=== PATIENT | male | born 1980 | race Caucasian/White ===

== ENCOUNTER 2022-01-07 09:05 | Outpatient (CLI) | payer OTHER, SELFPAY ==
[2022-01-07 09:55] LABS: Uric Acid 7.3 mg/dL (3.5-8.5)
== END 2022-01-07 09:06 | disposition home or self-care (01) ==
LOC: ANHLAB 09:08
PROVIDERS: PCP Internal Medicine; Visit Provider Internal Medicine
DX: M10.9 Gout, unspecified (principal)
CPT/HCPCS: 36415; 84550

== ENCOUNTER 2023-03-02 08:25 | Outpatient (CLI) | payer OTHER, SELFPAY ==
[2023-03-02 19:56] LABS: Basophils Absolute Auto 0.1 K/mm3 (0.0-0.1); Basophils Percent Auto 0.8 % (0.2-1.2); Eosinophils Absolute Auto 0.1 K/mm3 (0-0.3); Eosinophils Percent Auto 1.5 % (0-4.4); Hematocrit 47.1 % (42.0-52.0); Immature Granulocyte Absolute 0.01 K/mm3 (0.00-0.031); Immature Granulocyte Percent A 0.2 % (0-0.5); Lymphocytes Percent Auto 35.5 % (18.3-44.2); Mean Corpuscular Hemoglobin 31.5 pg (26-34); Mean Corpuscular Volume 92.7 fl (80-100); Mean Platelet Volume 9.8 fl (7.4-10.4); Monocytes Absolute Auto 0.5 K/mm3 (0.1-0.6); Neutrophils Absolute Auto 3.5 K/mm3 (1.3-6.7); Platelet Count Result 299 k/mm3 (150-375); Red Blood Count 5.08 M/mm3 (4.6-6.20); White Blood Count 6.5 K/mm3 (4.5-10.0)
[2023-03-02 21:32] LABS: Alanine Aminotransferase 61 U/L (6-50); Albumin Level 4.8 g/dL (3.5-5.1); Alkaline Phosphatase 84 U/L (38-126); Anion Gap 7 mmol/L (8-16); Aspartate Amino Transferase 65 U/L (17-59); Bilirubin,Total 0.7 mg/dL (0.2-1.3); Blood Urea Nitrogen 19 mg/dL (9-20); Calcium 9.7 mg/dL (8.4-10.2); Carbon Dioxide 32 mmol/L (22-30); Chloride 101 mmol/L (98-107); Cholesterol 203 mg/dL (0-200); Estimated Glomerular Filt Rate > 60; Glucose 85 mg/dL (65-110); HDL Direct 41 mg/dL; Potassium 4.8 mmol/L (3.4-5.0); Sodium 140 mmol/L (137-145); Triglycerides 122 mg/dL (<150); Uric Acid 8.7 mg/dL (3.5-8.5)
[2023-03-02 21:43] LABS: LDL Cholesterol Direct 124 mg/dL
[2023-03-10 04:49] LABS: Testosterone Free 60.5 pg/mL (35.0-155.0); Testosterone Total 275 ng/dL (250-1100)
[2023-03-12 23:56] LABS: Estradiol, Ultrasensitive 26 pg/mL (< OR = 29)
== END 2023-03-02 08:26 | disposition home or self-care (01) ==
LOC: ANHGOSHLAB 08:28
PROVIDERS: PCP Internal Medicine; Visit Provider Nurse Practitioner
DX: G47.19 Other hypersomnia (principal); I10 Essential (primary) hypertension; M10.9 Gout, unspecified
CPT/HCPCS: 36415; 80053; 80061; 82670; 84402; 84403; 84443; 84550; 85025

== ENCOUNTER 2023-03-31 09:32 | Outpatient (CLI) | payer OTHER, SELFPAY ==
[2023-04-05 19:20] LABS: Testosterone Free 68.4 pg/mL (35.0-155.0); Testosterone Total 329 ng/dL (250-1100)
== END 2023-03-31 09:33 | disposition home or self-care (01) ==
LOC: ANHGOSHLAB 09:32
PROVIDERS: PCP Internal Medicine; Visit Provider Nurse Practitioner
DX: G47.19 Other hypersomnia (principal)
CPT/HCPCS: 36415; 84402; 84403

== ENCOUNTER 2023-05-24 08:15 | Outpatient (CLI) | payer OTHER, SELFPAY ==
--- NOTE | 2023-06-21 17:32 | WPDSLEEPSTUD ---
Sleep Study Date of Study: 05/24/23 Ordering Provider: Inessa Jameson NP Interpreting Physician: Chio Martinez DO Sleep Study Type: Split Polysomnogram Height: 1.78 m Weight: 102.058 kg Body Mass Index: 32.3 Neck Circumference (inches): 17 [place]: 11 Reason for Sleep Study Previously diagnosed CHARLES by home sleep test. Has been using Mandibular Advancement Device. Persistent daytime hypersomnia, nocturnal gasping Sleep History The patient is a 42-year-old male with hypertension, gout and previously diagnosed sleep apnea that had a sleep study ordered by his primary care for re-evaluation of his sleep apnea. The patient had a home sleep test ordered by his dentist and tested positive for sleep apnea which was then treated using a mandibular advancement device. The patient has persistent snoring, nocturnal gasping and daytime hypersomnia. The patient frequently awakens from sleep short of breath. He occasionally awakens at night with heartburn, belching or cough. He constantly snores loudly enough others complain. He occasionally has trouble sleeping when he has a cold. He frequently wakes up gasping for air throughout the night. He constantly has breathing problems at night observed by himself or others. He occasionally sweats excessively at night. He occasionally has heart palpitations or irregular heartbeats during the night. He rarely falls asleep during the day but never falls asleep while driving. He denies cataplexy. He occasionally has trouble at school or work due to sleepiness. He rarely feels unable to move while waking up or falling asleep. He rarely experiences vivid dreamlike scenes upon awakening or falling asleep. He denies feeling afraid of going to sleep. He rarely has nightmares. He occasionally remembers his dreams. He rarely has thoughts racing through his mind. He rarely feels sad or depressed. He rarely has anxiety. He occasionally has muscular tension. He occasionally notices parts of his body jerk. He occasionally kicks during the night. He rarely has crawling and aching feelings in his legs and rarely has leg pain during the night. He frequently grinds his teeth during sleep and frequently awakens with morning jaw pain. He is occasionally bothered by pain during the day but rarely awakened by pain during the night. He occasionally wakes up feeling stiff in the morning. He occasionally wakes up with sore achy muscles. He occasionally wakes up with pain in the neck, spine and other joints. He goes to bed at 10:00 p.m. on both weekdays and weekends. It takes him 30-60 minutes to fall asleep. He wakes up 2-3 times throughout the night to urinate and is able to fall back asleep within 15 minutes. He wakes up at 6:00 a.m. on both weekdays and weekends. He typically gets 5-6 hours of sleep per night. He does not stay in bed very long after waking up in the morning. He currently lives with his and 3 children. He denies consuming any caffeinated beverages within 2 hours of bedtime. He denies engaging in physical exercise before bedtime. He will watch television before falling asleep. He denies taking naps in the afternoon or the evening. He consumes 4 caffeinated beverages per day. He consumes 3 alcoholic beverages per day. He denies tobacco and recreational drug use. [facility] Family History Family History Father Acute myocardial infarction Mother Polycystic kidney disease Social History Social History Smoking status: Never smoker Alcohol intake: current Drinks per week: 5 Substance use: never Lack of Transportation: No Lack of Food: Never True Current Housing: I Have Housing Concerned About Future Housing: No Difficulty Paying Gas/Electric Bills: No Difficulty Paying for Meds: No Currently Unemployed: No Education: Bachelor's Degree Difficulty w/
[2023-06-21 17:39] VITALS: BMI 32.3
== END 2023-05-25 06:46 | disposition home or self-care (01) ==
LOC: ANHCSM 08:16
PROVIDERS: PCP Internal Medicine; Visit Provider Nurse Practitioner
DX: G47.30 Sleep apnea, unspecified (principal); G47.33 Obstructive sleep apnea (adult) (pediatric)
CPT/HCPCS: 95811

== ENCOUNTER 2023-07-02 11:30 | Emergency (ER) | payer OTHER, SELFPAY ==
--- NOTE | ~2023-07-02 | XR_ITS ---
XR ankle RT min 3V DATE: 07/02/2023 12:18 INDICATION: Pain and swelling for 3 days after running upstairs TECHNIQUE: 4 views of right ankle COMPARISON: None FINDINGS: No fracture or dislocation of the ankle or disruption of the ankle mortise. No periosteal r eaction or bone destruction. Ankle joint space appears well preserved. IMPRESSION: Negative Reviewed, dictated and finalized at location A. IMPRESSION: Negative
--- NOTE | ~2023-07-02 | XR_ITS ---
XR foot RT min 3V DATE: 07/02/2023 12:19 INDICATION: Pain and swelling for 3 days after running upstairs TECHNIQUE: 4 views COMPARISON: None FINDINGS: There is mild osteoarthritis at the first metatarsophalangeal joint. No fracture or disloca tion, periosteal reaction or bone destruction is detected. IMPRESSION: Mild first metatarsophalangeal joint osteoarthritis Reviewed, dictated and finalized at location A.
[2023-07-02 11:44] VITALS: BP 160/96; PULSE 78; RESP 18; TEMP 36.5; O2SAT 98
--- NOTE | 2023-07-02 11:52 | ED.GENADULT ---
HPI - General Adult General Chief complaint: Extremity Injury, Lower Stated complaint: Rt Ankle Pain Time Seen by Provider: 07/02/23 11:52 Source: patient Mode of arrival: ambulatory Limitations: no limitations History of Present Illness HPI narrative: 42-year-old male patient presents to the [facility] with complaints of a right foot pain. Patient states that he was running up some stairs and missed a step and landed hard down on to his right foot about 3 days ago. Patient states he has been taking some anti-inflammatories but continues to have worsening pain and noticed that the swelling is getting worse and noticed discoloration to foot as compared to left. Patient does have history of gout before but states he has never had it to the heel or the medial side of the foot before. Patient states he has pain to the foot area within chest resting as well as when putting weight on to the foot. Related Data Allergies Allergy/AdvReac Type Severity Reaction Status Date / Time No Known Allergies Allergy Verified 07/02/23 11:36 Review of Systems Review of Systems: CONSTITUTIONAL: Denies fever, chills, or sweats. EYES: Denies visual changes, redness, or discharge. ENT: Denies rhinorrhea, congestion, sore throat, or otalgia. CARDIOVASCULAR: Denies chest pain, palpitations, or edema. RESPIRATORY: Denies cough or dyspnea. GASTROINTESTINAL: Denies abdominal pain, nausea, vomiting, or diarrhea. GENITOURINARY: Denies dysuria or hematuria. SKIN: Denies rash or itching. MUSCULOSKELETAL: Denies back pain, joint pain, or myalgia. Positive right foot pain x3 days NEUROLOGIC: Denies headache, numbness, or weakness. PSYCHIATRIC: Denies anxiety or depression. [facility] Past Medical History Medical History (Updated 07/02/23 @ 12:55 by ZARIA Ballard) Essential hypertension Gout Family History Family History Father Acute myocardial infarction Mother Polycystic kidney disease Social History Social History Smoking status: Never smoker Alcohol intake: current Drinks per week: 5 Substance use: never Lack of Transportation: No Lack of Food: Never True Current Housing: I Have Housing Concerned About Future Housing: No Difficulty Paying Gas/Electric Bills: No Difficulty Paying for Meds: No Currently Unemployed: No Education: Bachelor's Degree Difficulty w/ Childcare or Family Care: No Comments At the time of my signature I agree with nursing past medical history, surgical, social, and family history. There is no relevant family history pertinent to the presenting complaint. Exam Narrative: GENERAL: Well-appearing, well-nourished, and in no acute distress. HEAD: Normocephalic, atraumatic. EYES: PERRLA and EOMI. ENT: Nares clear, no rhinorrhea or epistaxis. Mucous membranes moist. NECK: Supple. No lymphadenopathy CHEST: Clear to auscultation. No respiratory distress. HEART: Regular rate and rhythm. No murmur heard. Normal peripheral pulses. ABDOMEN: Soft, nontender, nondistended, normal active bowel sounds. EXTREMITIES: Patient able to bear weight and ambulate with pain to right foot. No obvious surface trauma, no ecchymosis, erythema, lesions, ulcers or break in skin integrity. The R foot is without obvious asymmetry or deformity when compared to the L foot. Slight inflammation and swelling noted over the medial aspect of the right ankle foot area. No bony step-off, nontender to palpation over the toes, midfoot , tenderness noted to the hindfoot medial malleolus area. pain with plantar/dorsiflexion, no pain noted with inversion/eversion. Distal motor and neurovascular status are intact. the right foot does have some discoloration noted as compared to left foot it does appear more reddish and darker than the left but. But pulses are intact and 2+ palpable. No numbness or tingling as being co
== END 2023-07-02 12:56 | disposition home or self-care (01) ==
PROVIDERS: Emergency Provider Nurse Practitioner Family; PCP Internal Medicine
DX: M72.2 Plantar fascial fibromatosis (principal); I10 Essential (primary) hypertension; M10.9 Gout, unspecified
CPT/HCPCS: 73610; 73630; 99213; G0463

== ENCOUNTER 2023-10-05 09:42 | Outpatient (CLI) | payer OTHER, SELFPAY ==
[2023-10-09 13:16] LABS: Testosterone Free 56.5 pg/mL (35.0-155.0); Testosterone Total 268 ng/dL (250-1100)
== END 2023-10-05 09:43 | disposition home or self-care (01) ==
LOC: ANHLAB 09:43
PROVIDERS: Clinical Nurse Specialist; PCP Internal Medicine; Visit Provider Nurse Practitioner
DX: R53.83 Other fatigue (principal); R63.5 Abnormal weight gain
CPT/HCPCS: 36415; 83001; 83002; 84402; 84403

== ENCOUNTER 2024-03-08 11:15 | Outpatient (CLI) | payer OTHER, SELFPAY ==
[2024-03-08 19:14] LABS: Basophils Percent Auto 0.6 % (0.2-1.2); Eosinophils Absolute Auto 0.1 K/mm3 (0-0.3); Eosinophils Percent Auto 1.4 % (0-4.4); Hematocrit 45.8 % (42.0-52.0); Hemoglobin 15.4 g/dL (14.0-18.0); Immature Granulocyte Absolute 0.02 K/mm3 (0.00-0.031); Immature Granulocyte Percent A 0.3 % (0-0.5); Lymphocytes Absolute Auto 1.98 K/mm3 (0.9-3.2); Lymphocytes Percent Auto 29.8 % (18.3-44.2); Mean Corpuscular HGB Conc 33.6 g/dl (32-36); Mean Corpuscular Hemoglobin 30.9 pg (26-34); Mean Corpuscular Volume 91.8 fl (80-100); Mean Platelet Volume 9.8 fl (7.4-10.4); Monocytes Absolute Auto 0.6 K/mm3 (0.1-0.6); Monocytes Percent Auto 8.4 % (2.6-8.5); Neutrophils Percent Auto 59.5 % (45.5-73.1); Platelet Count Result 260 k/mm3 (150-375); Red Blood Count 4.99 M/mm3 (4.6-6.20); Red Cell Distribution Width 12.6 % (11.5-14.5); White Blood Count 6.7 K/mm3 (4.5-10.0)
[2024-03-08 19:43] LABS: Alanine Aminotransferase 55 U/L (6-50); Albumin Level 4.6 g/dL (3.5-5.1); Alkaline Phosphatase 77 U/L (38-126); Anion Gap 8 mmol/L (4-12); Aspartate Amino Transferase 39 U/L (17-59); Bilirubin,Total 0.8 mg/dL (0.2-1.3); Blood Urea Nitrogen 12 mg/dL (9-20); Calcium 9.4 mg/dL (8.4-10.2); Carbon Dioxide 28 mmol/L (22-30); Chloride 102 mmol/L (98-107); Cholesterol 168 mg/dL (0-200); Estimated Glomerular Filt Rate > 60; Glucose 97 mg/dL (65-110); HDL Direct 41 mg/dL; Potassium 4.2 mmol/L (3.4-5.0); Sodium 138 mmol/L (137-145); Triglycerides 123 mg/dL (<150); Uric Acid 7.7 mg/dL (3.5-8.5)
[2024-03-08 19:54] LABS: LDL Cholesterol Direct 99 mg/dL
[2024-03-08 20:24] LABS: Vitamin D 25 Hydroxy 43.8 ng/mL
== END 2024-03-08 11:16 | disposition home or self-care (01) ==
LOC: ANHGOSHLAB 11:16
PROVIDERS: PCP Nurse Practitioner; Visit Provider Nurse Practitioner
DX: E55.9 Vitamin D deficiency, unspecified (principal); R53.83 Other fatigue; M10.9 Gout, unspecified; I10 Essential (primary) hypertension
CPT/HCPCS: 36415; 80053; 80061; 82306; 84550; 85025

== ENCOUNTER 2024-08-01 01:11 | Day surgery (SDC) | payer OTHER, SELFPAY ==
[2024-07-12 13:40] VITALS: BMI 28.8
[2024-08-01 06:53] VITALS: BP 124/90; PULSE 71; RESP 20; TEMP 36.2; O2SAT 100; BMI 28.8
[2024-08-01] MEDS: LACTATED RINGERS 1,000 ML 150 ML IV CONT (06:56)
--- NOTE | 2024-08-01 07:43 | WPDANESEPPF ---
Anes - Initial Pre Proc Eval Procedure: Operation Date: 08/01/24 08:00 Proposed Procedures p Screening Colonoscopy - Gallito Moya MD Date/Time: 08/01/24 07:43 Surgeon: Gallito Moya MD Pre Op Diagnosis: neoplasm screening Patient Data Age: 43 Gender: M Height: 1.78 m Weight: 91.2 kg Last Vital Signs Temp 36.2 C L 08/01/24 06:53 Pulse 71 08/01/24 06:53 Resp 20 08/01/24 06:53 BP 124/90 08/01/24 06:53 Pulse Ox 100 08/01/24 06:53 O2 Del Method Room Air 08/01/24 06:53 Allergies Allergy/AdvReac Type Severity Reaction Status Date / Time No Known Allergies Allergy Verified 08/01/24 06:51 Home Medications Medication Instructions Recorded Confirmed Type Resmed AirSense 11 CPAP at 14 cm #1 ea 06/22/23 03/14/24 Rx H2O, size medium Resmed AirFit F20 full face mask, CPAP filters/tubing a Heated tube for C-pap. #1 ea 07/13/23 03/14/24 Rx colchicine 0.6 mg tablet See Rx Instructions .Route 05/24/24 08/01/24 Rx .COMPLEX #90 tabs lisinopril 20 mg tablet 20 mg PO DAILY #90 tabs 05/24/24 08/01/24 Rx prednisone 20 mg tablet 20 mg PO BID #10 tabs 05/30/24 08/01/24 Rx Patient hx anesthesia problems: none Family hx anesthesia problems: none Results Review: All pre-operative results and documents have been reviewed as part of the pre-operative evaluation. [facility] Past Medical History Medical History Essential hypertension Gout Family History Family History Father Acute myocardial infarction Mother Polycystic kidney disease Social History Social History Smoking status: Never smoker Alcohol intake: current Drinks per week: 5 Substance use: never Substance use type: does not use Do You Feel Safe in your Home?: Yes Lack of Transportation: No Lack of Food: Never True Current Housing: I Have Housing Concerned About Future Housing: No Difficulty Paying Gas/Electric Bills: No Difficulty Paying for Meds: No Currently Unemployed: No Education: Bachelor's Degree Difficulty w/ Childcare or Family Care: No Living arrangements: with family Spiritual care concerns: No Anes - Eval Final PreProcedure Day of Procedure 08/01/24 07:43 Patient weight: overweight Heart: regular rate and rhythm Lungs: clear to auscultation Airway: Mallampati scale class II Neurological: alert and oriented Last oral intake: >/= 8 hours ASA classification: III Emergent: no Anesthetic plan: proceed Anesthesia type and monitoring: general GIVS and standard monitoring Results Review: All pre-operative results and documents have been reviewed as part of the pre-operative evaluation. Informed Consent: The patient's anesthetic plan and its attendant risks and benefits were discussed with the patient/family/POA. Questions were solicited and answers provided to the satisfaction of the patient/family/POA.
--- NOTE | 2024-08-01 07:45 | PM.HPGS ---
History of Present Illness History of Present Illness Consent: Risks, benefits, and alternatives have been discussed and questions answered. Patient agrees to proceed with procedure. Chief complaint: neoplasm screening Narrative: Duy Gallo is a 43 year old male here for first screening colonoscopy Review of Systems Review of Systems: All systems reviewed & are unremarkable except as noted in HPI and below PMFSH Past Medical History Medical History Essential hypertension Gout Family History Family History Father Acute myocardial infarction Mother Polycystic kidney disease Social History Social History Smoking status: Never smoker Alcohol intake: current Drinks per week: 5 Substance use: never Substance use type: does not use Do You Feel Safe in your Home?: Yes Lack of Transportation: No Lack of Food: Never True Current Housing: I Have Housing Concerned About Future Housing: No Difficulty Paying Gas/Electric Bills: No Difficulty Paying for Meds: No Currently Unemployed: No Education: Bachelor's Degree Difficulty w/ Childcare or Family Care: No Living arrangements: with family Spiritual care concerns: No Meds Home Medications and Allergies Home Medications Medication Instructions Recorded Confirmed Type Resmed AirSense 11 CPAP at 14 cm #1 ea 06/22/23 03/14/24 Rx H2O, size medium Resmed AirFit F20 full face mask, CPAP filters/tubing a Heated tube for C-pap. #1 ea 07/13/23 03/14/24 Rx colchicine 0.6 mg tablet See Rx Instructions .Route 05/24/24 08/01/24 Rx .COMPLEX #90 tabs lisinopril 20 mg tablet 20 mg PO DAILY #90 tabs 05/24/24 08/01/24 Rx prednisone 20 mg tablet 20 mg PO BID #10 tabs 05/30/24 08/01/24 Rx Allergies Allergy/AdvReac Type Severity Reaction Status Date / Time No Known Allergies Allergy Verified 08/01/24 06:51 Vital Signs Vital Signs - 24 hr 08/01/24 06:53 Temperature 97.2 F L Pulse Rate 71 Respiratory Rate 20 Blood Pressure 124/90 Pulse Oximetry 100 Oxygen Delivery Room Air Exam Const: General: comfortable and no acute distress HENMT: Face/Nose/Sinus: Normal nares present Eyes: General: appearance normal, both eyes and all related structures Neck: Neck: no JVD Resp: Auscultation: clear to auscultation bilaterally Cardio: Rate: regular rate Rhythm: regular rhythm GI: Inspection: non-distended GI Palp: Yes Soft to palpation Skin: General skin exam: normal color Neuro: General: gait normal Speech: normal speech Extrem: General: normal to inspection Psych: Mental Status: mental status grossly normal Assessment and Plan Assessment and plan (1) Screening for colon cancer: Code(s): Z12.11 - Encounter for screening for malignant neoplasm of colon Status: Acute Assessment and Plan: colonoscopy
[2024-08-01 08:04] VITALS: BP 133/60; PULSE 77; RESP 20; O2SAT 98
[2024-08-01 08:14] VITALS: BP 106/75; PULSE 75; RESP 16; O2SAT 100
[2024-08-01 08:24] VITALS: BP 122/72; PULSE 70; RESP 22; O2SAT 100
== END 2024-08-01 08:33 | disposition home or self-care (01) ==
PROVIDERS: PCP Nurse Practitioner; Visit Provider Internal Medicine Gastroenterology
PROC: 0DJD8ZZ Inspection of Lower Intestinal Tract, Via Natural or Artificial Opening Endoscopic (ICD-10-PCS; CPT 45378; principal; 2024-08-01 08:00)
DX: Z12.11 Encounter for screening for malignant neoplasm of colon (principal); D12.5 Benign neoplasm of sigmoid colon; I10 Essential (primary) hypertension; M10.9 Gout, unspecified
CPT/HCPCS: 45380; 88305; J2003; J2704; J7120

== ENCOUNTER 2024-08-30 09:12 | Outpatient (CLI) | payer OTHER, SELFPAY ==
--- NOTE | ~2024-08-30 | US_ITS ---
Limited Abdominal Sonogram: Real-time sonographic imaging of the right upper quadrant was performed. Clinical History: Abnormal serum enzyme levels Findings: The liver appears normal with no evidence of mass lesion or bile duct dilatation. Main por thomas vein demonstrates normal direction of flow. The gallbladder is well distended, and demonstrate 3 mm gallbladder wall polyp. The common bile duct measures 4 mm. The visualized pancreas, aorta, and I VC are unremarkable. Right kidney measures 11.5 cm in length, with renal cysts present. Impression: 3 mm gallbladder wall polyp. Reviewed, dictated and finalized at location M. TESTER Impression: 3 mm gallbladder wall polyp.
== END 2024-08-30 09:13 | disposition home or self-care (01) ==
LOC: MICIMG 09:14
PROVIDERS: PCP Nurse Practitioner; Visit Provider Internal Medicine
DX: R74.8 Abnormal levels of other serum enzymes (principal); K82.4 Cholesterolosis of gallbladder
CPT/HCPCS: 76705

== ENCOUNTER 2024-11-23 15:51 | Outpatient (CLI) | payer OTHER, SELFPAY ==
--- OUTSIDE RECORDS SUMMARY | 2024-11-23 15:56 | XMS_ITS | Clinical Summary ---
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 Gender Identity Not on file Sexual Orientation Not on file Plan of Treatment Health Maintenance Due Date Last Done Comments Hepatitis C Virus (HCV) Screening 1978 TdaP Immunization 1978 Hepatitis B Immunization (1 of 3 - 19+ 3-dose series) 1997 Colonoscopy 2023 Colorectal Cancer Screening 2023 Influenza Immunization (#1) 2024 SARS-COV-2 Immunization ( season) 2024 Respiratory Syncytial Virus (RSV) Immunization (Adult) (1 - 1-dose 75+ series) 2053 Meningococcal Immunization (ACWY) Aged Out No longer eligible based on patient's age to complete this topic Pneumococcal Immunization Combined Aged Out No longer eligible based on patient's age to complete this topic Rotavirus Immunization Aged Out No lo nger eligible based on patient's age to complete this topic
--- OUTSIDE RECORDS SUMMARY | 2024-11-23 15:56 | XMS_ITS | Clinical Summary ---
Author Organization [facility] Address [address] [place] [address] Care Team Providers Care Armature Connector Name Role Phone Matthew Schwarz MD Primary Care Provider [phone] Source Comments [facility],non-owned Affiliates and Associated Physician Practices is amultiple site organization consisting of ambulatory clinics and hospital sitesin [place], [place], [place] and [place]. This disclosure is being madepursuant to the Care Everywhere program and may not contain all information available regarding this patient. 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 Height 177.8 cm (5' 10 ) 12/02/2015 10:12 AM MEDICAL ILLUSTRATOR Body Mass Index 29.41 12/02/2015 10:12 AM MEDICAL ILLUSTRATOR Plan of Treatment Health Maintenance Due Date Last Done Comments COLOGUARD (AGES 45-75) - COL ON CA SCREENING 1978 COLON MONITORING 1978 COLONOSCOPY - COLON CA SCREENING 1978 CT COLONOGRAPHY - COLON CA SCREENING 1978 Colorectal Cancer Screening 1978 FIT - COLON CA SCREENING 1978 FLEX SIG - COLON CA SCREENING 1978 LIPID TESTING 1978 HIV SCREENING 1993 HEPATITIS C SCREENING 09/06/1996 DTAP/TDAP/TD VACCINES (1 - Tdap) 1997 HEPATITIS B VACCINE (1 of 3 - 19+ 3-dose series) 1997 COVID-19 VACCINE (2023-2 5 season) 2024 INFLUENZA VACCINE (#1) 2024 DEPRESSION SCREENING 10/24/2024 ZOSTER VACCINE (1 of 2) 2028 HIB VACCINE Aged Out No longer eligi ble based on patient's age to complete this topic HPV VACCINE Aged Out No longer eligi ble based on patient's age to complete this topic MENINGOCOCCAL (Group B) VACCINE Aged Out No longer eligible based on patient's age to complete this topic MENINGOCOCCAL VACCINE Aged Out No cristobal juan eligible based on patient's age to complete this topic PNEUMOCOCCAL VACCINE Aged Out No long er eligible based on patient's age to complete this topic Care Teams Armature Connector Relationship Specialty Start Date End Date Matthew Schwarz MD [address] [place] [address] PCP - General Family Medicine 11/26/15
--- OUTSIDE RECORDS SUMMARY | 2024-11-23 15:56 | XMS_ITS | Referral Summary ---
Author Organization [facility] Address [address] [place] [address] Care Team Providers Care Combatant Swimmer Name Role Phone Matthew Schwarz MD Primary Care Provider [phone] Source Comments [facility],non-owned Affiliates and Associated Physician Practices is amultiple site organization consisting of ambulatory clinics and hospital sitesin [place], [place], [place] and [place]. This disclosure is being madepursuant to the Care Everywhere program and may not contain all information available regarding this patient. 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
--- OUTSIDE RECORDS SUMMARY | 2024-11-23 15:56 | XMS_ITS | Patient Health Summary ---
Author Organization [facility] Address [address] [place] [address] Care Team Providers Care Avionics Installer Name Role Phone Matthew Schwarz MD Primary Care Provider [phone] Note from [facility],non-owned Affiliates and Associated Physician Practices is amultiple site organization consisting of ambulatory clinics and hospital sitesin [place], [place], [place] and [place]. This disclosure is being madepursuant to the Care Everywhere program and may not contain all information available regarding this patient. 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 Edited by Tamera Salinas on 12/02/2015 12:42 PM Narrative 12/02/2015 12:57 PM HOT HEADER OPERATOR RIGHT SHOULDER THREE VIEWS History: Pain. Three views of the shoulder demonstrate no fracture or dislocation. Procedure Note Thomas Wilder MD - 12/02/2015 RIGHT SHOULDER THREE VIEWS History: Pain. Three views of the shoulder demonstrate no fracture or dislocation. IMPRESSION Unremarkable study. Edited by Tamera Salinas on 12/02/2015 12:42 PM Sai Lino MD DIAGNOSTIC IMAGING O [facility] Care Teams Avionics Installer Relationship Specialty Start Date End Date Matthew Schwarz MD [address] [place] [address] PCP - General Family Medicine 11/26/15
[2024-11-23 16:21] LABS: Alanine Aminotransferase 73 U/L (6-50); Albumin Level 4.5 g/dL (3.5-5.1); Alkaline Phosphatase 91 U/L (38-126); Anion Gap 10 mmol/L (4-12); Aspartate Amino Transferase 33 U/L (17-59); Bilirubin,Total 0.7 mg/dL (0.2-1.3); Blood Urea Nitrogen 14 mg/dL (9-20); Calcium 9.7 mg/dL (8.4-10.2); Carbon Dioxide 28 mmol/L (22-30); Chloride 102 mmol/L (98-107); Estimated Glomerular Filt Rate > 60; Glucose 95 mg/dL (65-110); Potassium 4.1 mmol/L (3.4-5.0); Sodium 140 mmol/L (137-145)
== END 2024-11-23 15:52 | disposition home or self-care (01) ==
PROVIDERS: PCP Internal Medicine; Visit Provider Internal Medicine
DX: R74.8 Abnormal levels of other serum enzymes (principal); M10.9 Gout, unspecified
CPT/HCPCS: 36415; 80053; 84550